=== PATIENT | female | born 1965 | race Two or more races ===

== ENCOUNTER 2018-03-09 11:44 | Emergency (ER) | payer SELFPAY ==
[2018-03-09 12:26] LABS: POC GLUCOSE 248 mg/dL (70-99)
[2018-03-09] MEDS: LIDOCAINE 5% TOPICAL OINTMENT 35GM TUBE. TP (12:28)
== END 2018-03-09 13:27 | disposition home or self-care (01) ==
LOC: ER 11:44
DX: K64.9 Unspecified hemorrhoids (principal); B37.89 Other sites of candidiasis; E11.9 Type 2 diabetes mellitus without complications; E78.00 Pure hypercholesterolemia, unspecified; I10 Essential (primary) hypertension; E03.9 Hypothyroidism, unspecified; Z90.49 Acquired absence of other specified parts of digestive tract
CPT/HCPCS: 82962; 99283